=== PATIENT | female | born 1965 | race Caucasian/White ===

== ENCOUNTER 2019-07-01 09:30 | Outpatient (CLI) | payer MEDICAID | END 2019-07-01 10:00 | disposition home or self-care (01) | LOC: D.MAMMO 09:30 | PROVIDERS: ATTEND General Practice | DX: Z12.31 Encounter for screening mammogram for malignant neoplasm of breast (principal) ==

== ENCOUNTER → 2019-11-05 12:58 | Outpatient (CLI) | payer MEDICAID | END | disposition home or self-care (01) | LOC: D.MRI 12:58 | PROVIDERS: ATTEND General Practice | DX: M25.522 Pain in left elbow (principal) ==